=== PATIENT | male | born 1970 | race Caucasian/White ===

== ENCOUNTER → 2019-02-01 | Outpatient (CLI) | payer BC ==
[~2019-02-01] MED LIST: SINCALIDE 1.36 MCG in IV NORMAL SALINE 50ML 30 ML IV ONE
--- NOTE | 2019-02-02 09:28 | RAD ---
Indication: Chronic abdominal pain. TECHNIQUE: Nuclear medicine HIDA scan with 5.5 mCi of technetium 99m Choletec. Ejection fraction was calculated after infusion of 1.36 mcg of Kinevac. COMPARISON: None FINDINGS: The gallbladder is confidently visualized at 10 minutes. Small bowel activity is confidently seen at 30 minutes. Ejection fraction is 40 percent. IMPRESSION: 1. No scintigraphic evidence of cystic duct obstruction. 2. Ejection fraction of 40 percent. Electronically signed by: Anthony Peña DO (02/02/2019 9:25 AM) [facility]
== END | disposition home or self-care (01) ==
LOC: NM 08:13
PROVIDERS: ATTEND Radiology Diagnostic Radiology
DX: R10.84 Generalized abdominal pain (principal); K87 Disorders of gallbladder, biliary tract and pancreas in diseases classified elsewhere; G89.29 Other chronic pain
CPT/HCPCS: 78227; A9537; J2805